=== PATIENT | female | born 1985 | race Caucasian/White ===

== ENCOUNTER 2016-08-18 18:26 | Emergency (ER) | payer OTHER | END 2016-08-18 20:05 | disposition home or self-care (01) | LOC: ER 18:26 | DX: R07.89 Other chest pain (principal); F43.9 Reaction to severe stress, unspecified; F41.9 Anxiety disorder, unspecified; G43.909 Migraine, unspecified, not intractable, without status migrainosus; F17.210 Nicotine dependence, cigarettes, uncomplicated; Z90.711 Acquired absence of uterus with remaining cervical stump; Z90.49 Acquired absence of other specified parts of digestive tract; Z98.51 Tubal ligation status; Z88.5 Allergy status to narcotic agent | CPT/HCPCS: 36415; 96374; 96375; J0780; J1200; J1885; J2060 ==

== ENCOUNTER 2016-09-26 00:24 | Emergency (ER) | payer OTHER | END 2016-09-26 02:11 | disposition home or self-care (01) | LOC: ER 00:24 | DX: G44.209 Tension-type headache, unspecified, not intractable (principal); K05.10 Chronic gingivitis, plaque induced; F41.9 Anxiety disorder, unspecified; F17.210 Nicotine dependence, cigarettes, uncomplicated; Z90.710 Acquired absence of both cervix and uterus; Z98.51 Tubal ligation status; Z90.49 Acquired absence of other specified parts of digestive tract; Z88.5 Allergy status to narcotic agent | CPT/HCPCS: 36415; 96361; 96374; 96375; J1200; J1885; J2765 ==